=== PATIENT | male | born 1950 | race Caucasian/White ===

== ENCOUNTER 2021-07-07 05:11 | Day surgery (SDC) | payer MEDICARE ==
[~2021-07-07] VITALS: Ht 178 cm; Wt 79.0 kg
[~2021-07-07 05:11] MED LIST: ACETAMINOPHEN500 M1 PO; CERTAGEN1 EACH PO; FAMOTIDINE40 MG PO; MONTELUKAST SOD10 MG PO; PANTOPRAZOLE SO40 MG PO; SIMVASTATIN40 MG PO; VENTOLIN HFA IN18 GM INH; XARELTO10 MG PO; ZOCOR40 MG PO
[2021-07-07 06:22] LABS: HCT 45.7 % (42.0-52.0); HGB 14.7 g/dl (13.2-18.0); MCHC 32.2 g/dL (32.0-36.0); MCV 93.3 fL (78.0-100.0); MPV 9.6 fL (6.0-9.5); RBC 4.9 M/uL (4.70-6.00); WBC 5.8 K/uL (4.0-10.5)
[2021-07-07 06:37] LABS: INR 1.09 (0.9-1.2); PROTHROMBIN TIME 13.5 SECONDS (11.8-13.4); PTT 34.8 SECONDS (24.4-34.7)
[2021-07-07 06:44] LABS: ALBUMIN 3.8 g/dL (3.4-5.0); BILIRUBIN - TOTAL 0.3 mg/dL (0.2-1.0); BUN/CREAT RATIO (CALC) 15.5 RATIO; CREATININE 1.03 mg/dL (0.67-1.17); GLOBULIN (CALCULATION) 4.2 g/dL; POTASSIUM 3.9 mmol/L (3.5-5.1)
[2021-07-07 06:53] LABS: BILIRUBIN NEGATIVE (NEGATIVE); BLOOD NEGATIVE Ery/uL (NEGATIVE); CLARITY CLEAR (CLEAR); COLOR YELLOW (YELLOW); GLUCOSE (U) NORMAL (NORMAL); LEUKOCYTES NEGATIVE Leu/uL (NEGATIVE); NITRITE NEGATIVE (NEGATIVE); PROTEIN NEGATIVE (NEGATIVE); SPECIFIC GRAVITY >=1.030 (1.001-1.030); UROBILINOGEN 0.2 mg/dL (0.2-1.0)
--- NOTE | 2021-07-07 14:28 | NUR ---
PT. HAD A LTRSR THIS DATE. PT. WILL D/C HOME WITH SPOUSE. NO NEEDS.
[2021-07-08 07:01] LABS: BASOPHIL 0.7 % (0-2); EOSINOPHIL 6.4 % (0-7); HGB 11.9 g/dl (13.2-18.0); LYMPHOCYTE 10.3 % (15-48); MCH 30.7 pg (25.0-31.0); MCHC 33.1 g/dL (32.0-36.0); MCV 92.8 fL (78.0-100.0); MONOCYTE 14.7 % (0-12); MPV 9.6 fL (6.0-9.5); NEUTROPHIL 67.6 % (41-80); NRBC 0; PLT 184 K/uL (150-400); RBC 3.88 M/uL (4.70-6.00); RDW 12.1 % (11.5-14.0); WBC 6.1 K/uL (4.0-10.5)
[2021-07-08 07:26] LABS: CREATININE 0.94 mg/dL (0.67-1.17); POTASSIUM 4.3 mmol/L (3.5-5.1)
[2021-07-08] MEDS ORDERED: NORCO 5-325 TA1 EACH PO ×2 (08:51→11:16)
[2021-07-08] MEDS ORDERED: FEOSOL325 MG PO ×2 (08:51→11:16)
--- NOTE | 2021-07-08 11:03 | NUR ---
PT D/C HOME THIS DATE WITH SPOUSE. PT HAS NO NEEDS AT THIS TIME.
== END 2021-07-08 13:20 | disposition home or self-care (01) ==
LOC: FAS 05:11 → FMS 09:20 → FAS 07-08 13:20
PROVIDERS: Legal Medicine
DX: M75.122 Complete rotator cuff tear or rupture of left shoulder, not specified as traumatic (principal); S43.012A Anterior subluxation of left humerus, initial encounter; E78.5 Hyperlipidemia, unspecified; K21.9 Gastro-esophageal reflux disease without esophagitis; G47.33 Obstructive sleep apnea (adult) (pediatric); M75.42 Impingement syndrome of left shoulder; S43.492A Other sprain of left shoulder joint, initial encounter; M19.012 Primary osteoarthritis, left shoulder; X58.XXXA Exposure to other specified factors, initial encounter; Z20.822 Contact with and (suspected) exposure to COVID-19; Y92.9 Unspecified place or not applicable
CPT/HCPCS: 36415; 73020; 80048; 80053; 81003; 85025; 85610; 85730; 86850; 86900; 86901; 94010; 94760; 94762; 97162; 97166; 97530-GP; 97535; C1713; C1776; J0171; J0697; J1885; J2250; J2270; J2704; J2795; J3010; J7120; U0002